=== PATIENT | female | born 1965 | race Caucasian/White ===

== ENCOUNTER → 2017-08-12 | Outpatient (CLI) | payer MEDICAID ==
--- NOTE | 2017-08-16 11:14 | MM ---
Reason for exam: screening (asymptomatic). Last mammogram was performed 2 years and 1 month ago. History: Patient is postmenopausal. Family history of breast cancer in paternal grandmother at age 68. Benign excisional biopsy of the left breast, 1986. Physical Findings: A clinical breast exam by your physician is recommended on an annual basis and results should be correlated with mammographic findings. MG 3D Screening Mammo W/Cad Bilateral CC and MLO view(s) were taken. Prior study comparison: July 03, 2015, bilateral MG 3d screening mammo w/cad. September 22, 2013, mammogram, performed at [facility]. There are scattered fibroglandular densities. There is a new 4mm mass in the right lower inner quadrant at middle depth. Post surgical change on the left breast. ASSESSMENT: Incomplete: need additional imaging evaluation, BI-RAD 0 RECOMMENDATION: Special view mammogram of the right breast. If lesion persists on supplemental views, image directed ultrasound is recommended. [facility] will attempt to contact patient to return for supplemental views and ultrasound if indicated.
== END | disposition home or self-care (01) ==
LOC: RADMAMWWP 07:02
PROVIDERS: ATTEND Obstetrics & Gynecology
DX: Z12.31 Encounter for screening mammogram for malignant neoplasm of breast (principal)
CPT/HCPCS: 77063; 77067

== ENCOUNTER → 2017-08-19 | Outpatient (CLI) | payer MEDICAID ==
--- NOTE | 2017-08-19 14:37 | MM ---
Reason for exam: additional evaluation requested from abnormal screening. Last mammogram was performed less than 1 month ago. History: Patient is postmenopausal. Family history of breast cancer in maternal grandmother at age 90 and breast cancer in paternal grandmother at age 68. Benign excisional biopsy of the left breast, 1986. Took estrogen beginning at age 29. Took progesterone beginning at age 29. Physical Findings: Nurse did not find any significant physical abnormalities on exam. MG 3D Work Up W/Cad RT Spot compression CC, spot compression MLO, and LM view(s) were taken of the right breast. Prior study comparison: August 12, 2017, bilateral MG 3d screening mammo w/cad. July 03, 2015, bilateral MG 3d screening mammo w/cad. Density persists ultrasound recommended. These results were verbally communicated with the patient and result sheet given to the patient on 08/19/17. ASSESSMENT: Incomplete: need additional imaging evaluation, BI-RAD 0 RECOMMENDATION: Ultrasound of the right breast.
--- NOTE | 2017-08-19 14:38 | USB ---
Reason for exam: additional evaluation requested from abnormal screening. History: Patient is postmenopausal. Family history of breast cancer in maternal grandmother at age 90 and breast cancer in paternal grandmother at age 68. Benign excisional biopsy of the left breast, 1986. Took estrogen beginning at age 29. Took progesterone beginning at age 29. US Breast Workup Limited RT Right breast ultrasound demonstrates a 0.4 x 0.5 x 0.2cm mixed lesion at 3 o'clock. These results were verbally communicated with the patient and result sheet given to the patient on 08/19/17. ASSESSMENT: Suspicious, BI-RAD 4 RECOMMENDATION: Ultrasound core biopsy of the right breast. Called Dr. Sage with mammographic findings and has scheduled an appointment for the patient for 09/22/17 at 3:[address] Gillis. Biopsy scheduled for 08/27/17 at 10:00. PRELIMINARY REPORT CALLED AND FAXED TO DR. GILLIS ON 08/19/17.
== END | disposition home or self-care (01) ==
LOC: RADMAMWWP 10:19
PROVIDERS: ATTEND Obstetrics & Gynecology
DX: R92.8 Other abnormal and inconclusive findings on diagnostic imaging of breast (principal)
CPT/HCPCS: 77065; 76642; G0279

== ENCOUNTER → 2017-08-27 | Day surgery (SDC) | payer MEDICAID ==
[2017-08-27 09:20] VITALS: BP 122/80; RESP 18; TEMP 98; BMI 33.9
[2017-08-27 11:27] VITALS: PULSE 80
--- NOTE | 2017-08-27 11:45 | USB ---
EXAMINATION TYPE: US biopsy breast VAD RT, MG diagnostic mammo RT wo CAD DATE OF EXAM: 08/27/2017 CLINICAL HISTORY: R92.8 Abn mammo. TECHNIQUE: Ultrasound guided core biopsy of right 3:00 breast. COMPARISON: NONE FINDINGS: The procedure of ultrasound guided core biopsy was explained to the patient. Benefits, alt ernatives, and risks were discussed. An informed consent was then obtained. The patient was placed in supine positioning for imaging and for the procedure. The overlying skin w as prepped and draped in usual sterile fashion. Lidocaine buffered with bicarbonate was used as anes thetic into the skin and subcutaneous tissue up to area of concern in the right 3:00 breast. Under ultrasound guidance, a 12-gauge vacuum assisted biopsy gun device was used to obtain 3 core sergey ples. Following this, a biopsy clip was left in lesion. The patient tolerated the procedure well without any immediate complication. The patient was kept in the radiology department for short stay after the procedure and then discharged home in stable condi tion. IMPRESSION: Successful, uncomplicated ultrasound guided core biopsy of area of concern in the right 3 :00 breast, full pathology results to follow.
== END ==
LOC: RADUSWWP 08:55
PROVIDERS: ATTEND Surgery
DX: N60.81 Other benign mammary dysplasias of right breast (principal); N60.31 Fibrosclerosis of right breast; N60.41 Mammary duct ectasia of right breast
CPT/HCPCS: 77065; 19083; A4648; J2001; 88305

== ENCOUNTER → 2019-02-24 | Outpatient (CLI) | payer OTHER ==
--- NOTE | 2019-02-24 14:42 | US ---
EXAMINATION TYPE: US carotid duplex BILAT DATE OF EXAM: 02/24/2019 COMPARISON: NONE CLINICAL HISTORY: E78.5 HYPERLIPIDEMIA. Hyperlipidemia EXAM MEASUREMENTS: RIGHT: Peak Systolic Velocity (PSV) cm/sec ----- Right CCA: 90.4 ----- Right ICA: 86.7 ----- Right ECA: 93.0 ICA/CCA ratio: 1.0 RIGHT: End Diastole cm/sec ----- Right CCA: 28.5 ----- Right ICA: 26.0 ----- Right ECA: 17.2 LEFT: Peak Systolic Velocity (PSV) cm/sec ----- Left CCA: 80.3 ----- Left ICA: 74.4 ----- Left ECA: 87.9 ICA/CCA ratio: 0.9 LEFT: End Diastole cm/sec ----- Left CCA: 26.0 ----- Left ICA: 36.5 ----- Left ECA: 22.2 VERTEBRALS (direction of flow): Right Vertebral: Antegrade Left Vertebral: Antegrade Rhythm: Normal Minimal plaque bilateral bifurcations. No evidence of stenosis IMPRESSION: 1. No significant flow-limiting stenosis. Criteria for Assigning % of Stenosis / Diameter reduction (Estimation based on the indirect measurements of the internal carotid artery velocities (ICA PSV). 1. Normal (no stenosis)=ICA PSV < 125 cm/s: ratio < 2.0: ICA EDV<40 cm/s. 2. Less than 50% stenosis=ICA PSV < 125 cm/s: ratio < 2.0: ICA EDV<40 cm/s. 3. 50 to 69% stenosis=ICA PSV of 125 to 230 cm/s: ration 2.0 ? 4.0: ICA EDV 40-100 cm/s. 4. Greater than 70% stenosis to near occlusion= ICA PSV > 230 cm/s: ratio > 4.0: ICA EDV > 100 cm/s. 5. Near occlusion= ICA PSV velocities may be low or undetectable: variable ratio and ICA EDV. 6. Total occlusion=unable to detect flow.
--- NOTE | 2019-02-28 08:11 | MM ---
Reason for exam: screening (asymptomatic). Last mammogram was performed 1 year and 6 months ago. History: Patient is postmenopausal. Family history of breast cancer in maternal grandmother at age 90 and breast cancer in paternal grandmother at age 68. Benign US biopsy breast VAD RT of the right breast, August 27, 2017. Benign excisional biopsy of the left breast, 1986. Took estrogen beginning at age 29. Took progesterone beginning at age 29. Physical Findings: A clinical breast exam by your physician is recommended on an annual basis and results should be correlated with mammographic findings. MG 3D Screening Mammo W/Cad Bilateral CC and MLO view(s) were taken. Prior study comparison: August 27, 2017, right breast MG diagnostic mammo RT wo CAD. August 19, 2017, right breast MG 3d work up w/cad RT. There are scattered fibroglandular densities. Previous mammotome biopsy in the right breast. No significant changes when compared with prior studies. ASSESSMENT: Negative, BI-RAD 1 RECOMMENDATION: Routine screening mammogram of both breasts in 1 year.
--- NOTE | 2019-03-01 15:12 | P.ARTDOP ---
Arterial Doppler LOWER EXTREMITY ARTERIAL DOPPLER: DATE OF SERVICE: 02/24/2019 Reason for study: Intermittent lower extremity edema. Doppler waveforms: Multiphasic bilaterally throughout. Pulse volume recording: []. Pressure gradients: None. Ankle-brachial indices: Greater than 1 bilaterally. Toe pressures: [] on the right, [] on the left Impression: Normal study.
== END | disposition home or self-care (01) ==
LOC: RADMAMWWP 06:57
PROVIDERS: ATTEND Family Medicine
DX: Z12.31 Encounter for screening mammogram for malignant neoplasm of breast (principal); E78.5 Hyperlipidemia, unspecified; M79.605 Pain in left leg; M79.604 Pain in right leg
CPT/HCPCS: 77063; 77067; 93880; 93922

== ENCOUNTER → 2019-08-04 | Outpatient (CLI) | payer OTHER ==
--- NOTE | 2019-08-04 13:47 | XR ---
EXAMINATION TYPE: XR ribs LT DATE OF EXAM: 08/04/2019 COMPARISON: NONE HISTORY: Pain TECHNIQUE: 2 views of the left ribs are submitted FINDINGS: Visualized rib cage is intact. No acute fracture or dislocation. IMPRESSION: No acute displaced rib fracture.
--- NOTE | 2019-08-04 13:48 | XR ---
EXAMINATION TYPE: XR chest 2V DATE OF EXAM: 08/04/2019 COMPARISON: 03/22/2013 TECHNIQUE: PA and lateral views submitted. HISTORY: Pain FINDINGS: The lungs are clear and there is no pneumothorax, pleural effusion, or focal pneumonia. No intersti tial edema. Heart size normal. There is a nodule in the right upper lobe measuring 6 mm. Hypertrophic change of the vertebral column. Surgical clips in the abdomen. IMPRESSION: 1. No acute process. There is a 6 mm right upper lobe nodule. Stable from the prior exam and compatib le with a granuloma.
== END | disposition home or self-care (01) ==
LOC: RADXRMAIN 13:10
PROVIDERS: ATTEND Family Medicine
DX: R91.1 Solitary pulmonary nodule (principal); R07.81 Pleurodynia
CPT/HCPCS: 71046

== ENCOUNTER → 2020-03-01 | Outpatient (CLI) | payer OTHER | END | disposition home or self-care (01) | LOC: LABWHC1 11:56 | PROVIDERS: ATTEND Family Medicine | DX: R05 Cough (principal) | CPT/HCPCS: U0003; C9803 ==

== ENCOUNTER → 2020-11-16 | Outpatient (CLI) | payer OTHER ==
[2020-11-16 17:02] LABS: African American GFR (CKD) 112.3 (60.0-200.0); Albumin 4.8 g/dL (3.80-4.90); Albumin/Globulin Ratio 1.92 (1.60-3.17); Anion Gap 8.5 mmol/L (4.00-12.00); BUN/Creat Ratio 25.71 Ratio (12.00-20.00); C Reactive Protein, High Sens 3.23 mg/L (0.000-3.000); Carbon Dioxide 28.5 mmol/L (21.6-31.8); Chol/HDL Ratio 6.55; Globulin 2.5 g/dL (1.6-3.3); Non-African American GFR(CKD) 96.9 (60.0-200.0); Potassium 4.9 mmol/L (3.5-5.5); Total Bilirubin 0.5 mg/dL (0.3-1.2); Total Protein 7.3 g/dL (6.2-8.2)
[2020-11-16 20:32] LABS: Hemoglobin A1C 9.2 % (4.0-6.0)
== END | disposition home or self-care (01) ==
LOC: LABWHC1 08:59
PROVIDERS: ATTEND Family Medicine
DX: E03.9 Hypothyroidism, unspecified (principal); E78.5 Hyperlipidemia, unspecified; E55.9 Vitamin D deficiency, unspecified; E74.39 Other disorders of intestinal carbohydrate absorption; I10 Essential (primary) hypertension
CPT/HCPCS: 36415; 80053; 80061; 82306; 83036; 83090; 84443; 86141

== ENCOUNTER → 2020-11-23 | Outpatient (CLI) | payer OTHER ==
--- NOTE | 2020-11-23 14:43 | XR ---
EXAMINATION TYPE: XR Hip Bilateral and AP pelvis DATE OF EXAM: 11/23/2020 COMPARISON: NONE HISTORY: Pain TECHNIQUE: 5 views FINDINGS: The pelvic ring is intact. Proximal femurs and hip joints appear normal. There are no patho logic calcifications at the hip joints. There is no sign of hip dysplasia. Sacroiliac joints are inta ct. There are phleboliths in the pelvis. IMPRESSION: No acute abnormality the pelvis and both hips.
== END | disposition home or self-care (01) ==
LOC: RADXRMAIN 12:08
PROVIDERS: ATTEND Family Medicine
DX: M25.552 Pain in left hip (principal); M25.551 Pain in right hip
CPT/HCPCS: 73521

== ENCOUNTER → 2020-12-06 | Outpatient (CLI) | payer OTHER ==
--- NOTE | 2020-12-10 08:58 | MM ---
Reason for exam: screening (asymptomatic). Last mammogram was performed 1 year and 9 months ago. History: Patient is postmenopausal. Family history of breast cancer in maternal grandmother at age 90 and breast cancer in paternal grandmother at age 68. Benign US biopsy breast VAD RT of the right breast, August 27, 2017. Benign excisional biopsy of the left breast, 1986. Took estrogen beginning at age 29. Took progesterone beginning at age 29. Physical Findings: A clinical breast exam by your physician is recommended on an annual basis and results should be correlated with mammographic findings. MG 3D Screening Mammo W/Cad Bilateral CC and MLO view(s) were taken. Prior study comparison: February 24, 2019, bilateral MG 3d screening mammo w/cad. August 27, 2017, right breast MG diagnostic mammo RT wo CAD. There are scattered fibroglandular densities. Right biopsy clip. ASSESSMENT: Benign, BI-RAD 2 RECOMMENDATION: Routine screening mammogram of both breasts in 1 year.
== END | disposition home or self-care (01) ==
LOC: RADMAMWWP 08:24
PROVIDERS: ATTEND Family Medicine
DX: Z12.31 Encounter for screening mammogram for malignant neoplasm of breast (principal); Z78.0 Asymptomatic menopausal state; Z80.3 Family history of malignant neoplasm of breast
CPT/HCPCS: 77063; 77067

== ENCOUNTER 2021-01-02 09:59 | Observation (INO) | payer OTHER ==
[2021-01-02] MEDS ORDERED: ASPIRIN 81 MG PO STA (10:15)
[2021-01-02] MEDS ORDERED: NITROGLYCERIN SL TABS 0.4 MG TAB SUBLINGUAL STA (10:15)
[2021-01-02] MEDS ORDERED: SODIUM CHLORIDE 0.9% 1,000 ML IV STA (10:29)
[2021-01-02 10:34] LABS: Basophils # (A) 0.1 k/uL (0-0.2); Basophils % (A) 1 %; Eosinophils # (A) 0.2 k/uL (0-0.7); Eosinophils % (A) 2 %; HGB 15.1 gm/dL (11.4-16.0); Lymphocytes # (A) 2.3 k/uL (1.0-4.8); Lymphocytes % (A) 28 %; MCH 31.9 pg (25.0-35.0); MCHC 34.3 g/dL (31.0-37.0); Monocytes # (A) 0.5 k/uL (0-1.0); Monocytes % (A) 6 %; Neutrophils # (A) 4.8 k/uL (1.3-7.7); Neutrophils % (A) 60 %; Platelet Count 553 k/uL (150-450); RBC 4.73 m/uL (3.80-5.40); WBC 8.1 k/uL (3.8-10.6)
[2021-01-02 10:43] LABS: ALT 52 U/L (4-34); AST 40 U/L (14-36); African American GFR (CKD) >90 (>60 ml/min/1.73 sqM); Albumin 5.1 g/dL (3.5-5.0); Alkaline Phosphatase 49 U/L (38-126); Anion Gap 13 mmol/L; Blood Urea Nitrogen 18 mg/dL (7-17); Calcium 10.9 mg/dL (8.4-10.2); Carbon Dioxide 25 mmol/L (22-30); Chloride 103 mmol/L (98-107); Glucose 169 mg/dL (74-99); Magnesium 1.8 mg/dL (1.6-2.3); Non-African American GFR(CKD) >90 (>60 ml/min/1.73 sqM); Sodium 141 mmol/L (137-145); Total Bilirubin 0.4 mg/dL (0.2-1.3); Total Protein 7.9 g/dL (6.3-8.2)
--- NOTE | 2021-01-02 10:53 | ED ---
Chest Pain HPI - General Chief Complaint: Chest Pain Stated Complaint: Chest Pain Time Seen by Provider: 01/02/21 10:13 Source: patient Mode of arrival: ambulatory Limitations: no limitations - History of Present Illness Initial Comments: 55-year-old female presents to emergency Department with chief complaint of chest pain. States she was recently diagnosed with type 2 diabetes and started on metformin. States she is also currently taking Crestor for dyslipidemia. Patient reports last week she saw a apn. She reports yesterday developing a pressure in the left side of her neck that was intermittent in nature. States she woke up this morning with dull pain on the left side that intermittently intensifies. States the pain is occasionally better when leaning forward. Does not appear to be exertional. Denies any associated shortness of breath, lightheadedness, dizziness, nausea, vomiting, one-sided weakness or paresthesias, visual changes. Does report extensive family history of early cardiac related events. Not a smoker. Cardiac catheterization in 2008 and was found not to have any occlusions - Related Data Home Medications Medication Instructions Recorded Confirmed Alendronate Sodium/Vitamin D3 1 each PO Q7DAYS 08/20/17 08/27/17 [Fosamax Plus D 70 mg-5,600 Iu] Losartan [Cozaar] 50 mg PO BID 08/20/17 08/27/17 Thyroid,Pork [[place] Thyroid] 120 mg PO DAILY 08/20/17 08/27/17 Allergies Allergy/AdvReac Type Severity Reaction Status Date / Time Iodinated Contrast Media Allergy Anaphylaxis Verified 01/02/21 10:03 Sulfa (Sulfonamide Allergy Rash/Hives Verified 01/02/21 10:03 Antibiotics) Review of Systems ROS Statement: Those systems with pertinent positive or pertinent negative responses have been documented in the HPI. ROS Other: All systems not noted in ROS Statement are negative. EKG Findings - EKG Comments: EKG Findings:: Sinus rhythm without acute ischemic changes. Ventricular rate 9 0, OK 156, QRS 86, QTC 452. Past Medical History Past Medical History: Diabetes Mellitus, Hyperlipidemia, Hypertension, Osteoarthritis (OA), Thyroid Disorder Additional Past Medical History / Comment(s): Ocular hypertension, MTHFR History of Any Multi-Drug Resistant Organisms: None Reported Past Surgical History: Breast Surgery, Cholecystectomy, Hysterectomy Additional Past Surgical History / Comment(s): TMJ surgery, Eye surgery, Benign excisional bx. left breast 1987 Past Anesthesia/Blood Transfusion Reactions: No Reported Reaction Past Psychological History: No Psychological Hx Reported Smoking Status: Never smoker Past Alcohol Use History: None Reported Past Drug Use History: None Reported General Exam Limitations: no limitations General appearance: alert, in no apparent distress, obese Head exam: Present: atraumatic, normocephalic, normal inspection Eye exam: Present: normal appearance, PERRL, EOMI Pupils: Present: normal accommodation ENT exam: Present: normal exam, normal oropharynx, mucous membranes moist Neck exam: Present: normal inspection, full ROM. Absent: tenderness, lymphadenopathy Respiratory exam: Present: normal lung sounds bilaterally. Absent: respiratory distress, wheezes, rales, rhonchi, stridor, chest wall tenderness, accessory muscle use Cardiovascular Exam: Present: regular rate, normal rhythm, normal heart sounds. Absent: systolic murmur Extremities exam: Present: normal inspection, full ROM, normal capillary refill. Absent: tenderness Back exam: Present: normal inspection, full ROM Neurological exam: Present: alert, oriented X3 Psychiatric exam: Present: normal affect, normal mood Skin exam: Present: warm, dry, intact, normal color Course Vital Signs 01/02/21 01/02/21 01/02/21 10:04 10:42 10:52 Temperature 98 F Pulse Rate 81 74 86 Respiratory 18 18 16 Rate Blood Pressure 153/87 127/76 129/73 O2 Sat by Pulse 94 L 95 95 Oximetry 01/02/21 11:21 Temperature Pulse Rate 68 Respiratory 18 Rate Blood Pressure 120/79 O2 Sat by Pulse 97 Oximetry Chest Pain MDM - MDM 55-year-old female presents to emergency Department with chief complaint of chest pain. Physical examination is unremarkable. Laboratory work reveals mild hypercalcemia of 10.9. Mild transaminitis. Initial troponins are negative. His x-rays unremarkable. EKG is nonischemic. I will order a carotid ultrasound due to her complaints of neck pressure and particular in the left side. Patient did have improvement of symptoms after the nitro. There is a higher likelihood for cardiac ischemia. She will be admitted for cardiac observation and serial troponins. Case discussed with who will admit. Case discussed with Dr. Priest Cardiology consult Disposition Clinical Impression: Chest pain Disposition: ADMITTED IP TO THIS HOSP Condition: Stable Instructions (If sedation given, give patient instructions): Chest Pain (ED) Is patient prescribed a controlled substance at d/c from ED?: No Referrals: Lois Olivo DO [Primary Care Provider] - 1-2 days Time of Disposition: 11:54
--- NOTE | 2021-01-02 11:17 | XR ---
EXAMINATION TYPE: XR chest 2V DATE OF EXAM: 01/02/2021 COMPARISON: Chest x-ray August 04, 2019 HISTORY: Chest pain. TECHNIQUE: Frontal and lateral views of the chest are obtained. FINDINGS: There is no suspicious new focal air space opacity, pleural effusion, or pneumothorax seen . The cardiac silhouette size remains within normal limits. The osseous structures are intact. Ove rlying EKG leads. Cholecystectomy clips noted. Stable lateral right upper lobe small calcified nodule or granuloma. IMPRESSION: No acute process. No significant change from prior.
[2021-01-02 11:22] LABS: Partial Thromboplastin Time 23.5 sec (22.0-30.0); Prothrombin Time 10.8 sec (9.0-12.0)
[2021-01-02] MEDS ORDERED: NITROGLYCERIN SL TABS 0.4 MG TAB SUBLINGUAL PRN (11:47)
--- NOTE | 2021-01-02 12:30 | US ---
EXAMINATION TYPE: US carotid duplex BILAT DATE OF EXAM: 01/02/2021 COMPARISON: US 2019 CLINICAL HISTORY: left neck pain, chest pain. EXAM MEASUREMENTS: RIGHT: Peak Systolic Velocity (PSV) cm/sec ----- Right CCA: 75.4 ----- Right ICA: 78.7 ----- Right ECA: 104.3 ICA/CCA ratio: 1.0 RIGHT: End Diastole cm/sec ----- Right CCA: 22.6 ----- Right ICA: 32.5 ----- Right ECA: 16.3 LEFT: Peak Systolic Velocity (PSV) cm/sec ----- Left CCA: 69.2 ----- Left ICA: 68.4 ----- Left ECA: 96.7 ICA/CCA ratio: 1.0 LEFT: End Diastole cm/sec ----- Left CCA: 19.8 ----- Left ICA: 32.0 ----- Left ECA: 11.1 VERTEBRALS (direction of flow): Right Vertebral: Antegrade Left Vertebral: Antegrade Rhythm: Normal No significant stenosis. IMPRESSION: 1. No significant hemodynamic stenosis NASCET criteria was used in interpretation of this exam? Criteria for Assigning % of Stenosis / Diameter reduction (Estimation based on the indirect measurements of the internal carotid artery velocities (ICA PSV). 1. Normal (no stenosis)=ICA PSV < 125 cm/s: ratio < 2.0: ICA EDV<40 cm/s. 2. Less than 50% stenosis=ICA PSV < 125 cm/s: ratio < 2.0: ICA EDV<40 cm/s. 3. 50 to 69% stenosis=ICA PSV of 125 to 230 cm/s: ration 2.0 ? 4.0: ICA EDV 40-100 cm/s. 4. Greater than 70% stenosis to near occlusion= ICA PSV > 230 cm/s: ratio > 4.0: ICA EDV > 100 cm/s. 5. Near occlusion= ICA PSV velocities may be low or undetectable: variable ratio and ICA EDV. 6. Total occlusion=unable to detect flow.
[2021-01-02 13:29] LABS: Glucose,Whole Blood 114 mg/dL (75-99)
--- NOTE | 2021-01-02 14:16 | P.CRDCN ---
History of Present Illness History of present illness: HISTORY OF PRESENTING ILLNESS This is a pleasant 55-year-old female past medical history significant for newly diagnosed dyslipidemia and diabetes mellitus, hypertension and GERD. She follows in the office with Dr. Mccollum at [facility]. We have been asked to see in consultation for chest pain. She states she woke up in the middle of the night with a pain in her left neck. She thought maybe it was reflux so she took at protonix and went back to sleep. She was then woken up a little bit later with ongoing sharp pain in the left neck and now pressure in the chest in the left precordial region. She denies shortness of breath, dizziness or palpitations. She was given nitroglycerin in the ER and it did improve her symptoms of chest discomfort, however she still has ongoing neck discomfort. She recently saw her violin mechanic earlier this week for a routine visit. She states she had a work-up with an echo and stress test in March 2020 that was normal. She also states she had a catheterization in 2008 that revealed small arteries with no blockages. DIAGNOSTICS EKG reveals sinus mechanism with no acute ST or T-wave abnormalities. Chest xray negative for an acute cardiopulmonary process. Laboratory reviewed, WBC 8, hgb 15.1, plt 553, sodium 141, potassium 4.0, creatinine 0.73 and cardiac enzymes negative x2. Current cardiac medications include losartan/hydrochlorothiazide 100/12.5 mg daily and rosuvastatin 10 mg at bedtime. REVIEW OF SYSTEMS At the time of my exam: CONSTITUTIONAL: Denies fever or chills. CARDIOVASCULAR: Denies chest pain, shortness of breath, orthopnea, PND or palpitations. RESPIRATORY: Denies cough. GASTROINTESTINAL: Denies abdominal pain, diarrhea, constipation, nausea or vomiting. MUSCULOSKELETAL: Denies myalgias. NEUROLOGIC: Denies numbness, tingling, headacbe or weakness. ENDOCRINE: Denies fatigue, weight change, polydipsia or polyurina. GENITOURINARY: Denies burning, hematuria or urgency with micturation. HEMATOLOGIC: Denies history of anemia or bleeding. PHYSICAL EXAMINATION Blood pressure 120/79 heart rate 68 afebrile and maintaining oxygen saturation on room air. CONSTITUTIONAL: No apparent distress. HEENT: Head is normocephalic. Pupils are equal, round. Sclerae anicteric. Mucous membranes of the mouth are moist. No JVD. No carotid bruit. CHEST EXAMINATION: Lungs are clear to auscultation. No chest wall tenderness is noted on palpation or with deep breathing. HEART EXAMINATION: Regular rate and rhythm. S1, S2 heard. Systolic ejection murmur at the base, no gallops or rub. ABDOMEN: Soft, nontender. Positive bowel sounds. EXTREMITIES: 2+ peripheral pulses, no lower extremity edema and no calf tende rness. NEUROLOGIC EXAMINATION: Patient is awake, alert and oriented x3. ASSESSMENT Chest pain, atypical Hypertension Dyslipidemia Diabetes mellitus PLAN Continue to obtain serial cardiac enzymes. Request records from her violin mechanic for review. Further recommendations to follow based upon clinical course. Nothing by mouth after midnight tonight. Thank you kindly for this consultation. Nurse Practitioner note has been reviewed, I agree with a documented findings and plan of care. Patient was seen and examined. Past Medical History Past Medical History: Diabetes Mellitus, Hyperlipidemia, Hypertension, Osteoarthritis (OA), Thyroid Disorder Additional Past Medical History / Comment(s): Ocular hypertension, MTHFR History of Any Multi-Drug Resistant Organisms: None Reported Past Surgical History: Breast Surgery, Cholecystectomy, Hysterectomy Additional Past Surgical History / Comment(s): TMJ surgery, Eye surgery, Benign excisional bx. left breast 1987 Past Anesthesia/Blood Transfusion Reactions: No Reported Reaction Past Psychological History: No Psychological Hx Reported Smoking Status: Never smoker Past Alcohol Use History: None Reported Past Drug Use History: None Reported Medications and Allergies Home Medications Medication Instructions Recorded Confirmed Type Thyroid,Pork [[place] Thyroid] 120 mg PO MOTUWETHFR 08/20/17 01/02/21 History Alendronate Sodium [Fosamax] 70 mg PO ESC[place]EDO 01/02/21 01/02/21 History Ascorbic Acid [Vitamin C] 1,000 mg PO DAILY 01/02/21 01/02/21 History Cholecalciferol (Vitamin D3) 125 mcg PO DAILY 01/02/21 01/02/21 History [Vitamin D3 (125 MCG = 5,000 IU)] Losartan/Hydrochlorothiazide 1 tab PO DAILY 01/02/21 01/02/21 History [Losartan-Hctz 100-12.5 mg Tab] [place]-3 Fatty Acids [[place]-3] 1,000 mg PO DAILY 01/02/21 01/02/21 History Rosuvastatin [Crestor] 10 mg PO HS 01/02/21 01/02/21 History Zinc 50 mg PO DAILY 01/02/21 01/02/21 History metFORMIN HCL [Glucophage] 500 mg PO BID 01/02/21 01/02/21 History Allergies Allergy/AdvReac Type Severity Reaction Status Date / Time Iodinated Contrast Media Allergy Anaphylaxis Verified 01/02/21 12:03 Sulfa (Sulfonamide Allergy Rash/Hives Verified 01/02/21 12:03 Antibiotics) Physical Exam Vitals: Vital Signs Temp Pulse Resp BP Pulse Ox 01/02/21 11:21 68 18 120/79 97 01/02/21 10:52 86 16 129/73 95 01/02/21 10:42 74 18 127/76 95 01/02/21 10:04 98 F 81 18 153/87 94 L Intake and Output 01/01/21 01/02/21 01/02/21 22:59 06:59 14:59 Other: Weight 70.307 kg Results 01/02/21 10:26 01/02/21 10:26 Cardiac Enzymes 01/02/21 01/02/21 01/02/21 Range/Units 10:26 10:26 13:05 AST 40 H (14-36) U/L Troponin I <0.012 <0.012 (0.000-0.034) ng/mL Coagulation 01/02/21 Range/Units 10:26 PT 10.8 (9.0-12.0) sec APTT 23.5 (22.0-30.0) sec CBC 01/02/21 Range/Units 10:26 WBC 8.1 (3.8-10.6) k/uL RBC 4.73 (3.80-5.40) m/uL Hgb 15.1 (11.4-16.0) gm/dL Hct 44.0 (34.0-46.0) % Plt Count 553 H (150-450) k/uL Comprehensive Metabolic Panel 01/02/21 Range/Units 10:26 Sodium 141 (137-145) mmol/L Potassium 4.0 (3.5-5.1) mmol/L Chloride 103 (98-107) mmol/L Carbon Dioxide 25 (22-30) mmol/L BUN 18 H (7-17) mg/dL Creatinine 0.71 (0.52-1.04) mg/dL Glucose 169 H (74-99) mg/dL Calcium 10.9 H (8.4-10.2) mg/dL AST 40 H (14-36) U/L ALT 52 H (4-34) U/L Alkaline Phosphatase 49 (38-126) U/L Total Protein 7.9 (6.3-8.2) g/dL Albumin 5.1 H (3.5-5.0) g/dL Current Medications Generic Name Dose Route Start Last Admin Trade Name Freq PRN Reason Stop Dose Admin Aspirin 325 mg 01/03/21 09:00 Aspirin 325 Mg Tab PO DAILY JANES Nitroglycerin 0.4 mg 01/02/21 11:47 Nitroglycerin Sl Tabs 0.4 Mg Tab SUBLINGUAL Q5M PRN Chest Pain Intake and Output 01/01/21 01/02/21 01/02/21 22:59 06:59 14:59 Other: Weight 70.307 kg Patient Weight 01/03/21 06:59 Weight 70.307 kg 01/02/21 10:26 01/02/21 10:26
--- NOTE | 2021-01-02 15:15 | P.HPIM ---
History of Present Illness Patient wasn't a 55-year-old female came in with complaints of chest tightness which started actually is a pain yesterday and she believes she may have acid reflux and took the Protonix. Patient has a this neck pain and chest pressure on and off lasting for a few minutes 5/10 intensity severity. Patient had a stress test last March which was within normal limits patient last cardiac catheterization isn't 2008 which did not show any significant atherosclerotic occlusive disease. Patient denied any shortness of breath or diaphoresis associated with her pain. Patient pain is nonpleuritic not associated with food. Patient presently doesn't have any symptoms did receive nitroglycerin with improvement in chest pain symptoms. EKG did not show any acute ST-T wave changes CT of the chest did not show any significant abnormality. REVIEW OF SYSTEMS: CONSTITUTIONAL: No fever, no malaise, no fatigue. HEENT: No recent visual problems or hearing problems. Denied any sore throat. CARDIOVASCULAR: No orthopnea, PND, no palpitations, no syncope. PULMONARY: No shortness of breath, no cough, no hemoptysis. GASTROINTESTINAL: No diarrhea, no nausea, no vomiting, no abdominal pain. NEUROLOGICAL: No headaches, no weakness, no numbness. HEMATOLOGICAL: Denies any bleeding or petechiae. GENITOURINARY: Denies any burning micturition, frequency, or urgency. MUSCULOSKELETAL/RHEUMATOLOGICAL: Denies any joint pain, swelling, or any muscle pain. ENDOCRINE: Denies any polyuria or polydipsia. The rest of the 14-point review of systems is negative. PHYSICAL EXAMINATION: GENERAL: The patient is alert and oriented x3, not in any acute distress. Well developed, well nourished. HEENT: Pupils are round and equally reacting to light. EOMI. No scleral icterus. No conjunctival pallor. Normocephalic, atraumatic. No pharyngeal erythema. No thyromegaly. CARDIOVASCULAR: S1 and S2 present. No murmurs, rubs, or gallops. PULMONARY: Chest is clear to auscultation, no wheezing or crackles. ABDOMEN: Soft, nontender, nondistended, normoactive bowel sounds. No palpable organomegaly. MUSCULOSKELETAL: No joint swelling or deformity. EXTREMITIES: No cyanosis, clubbing, or pedal edema. NEUROLOGICAL: Gross neurological examination did not reveal any focal deficits. SKIN: No rashes. Assessment and plan -Chest pain we will rule out acute coronary syndromes, patient chest pain is atypical although etiology of her chest pain is not clear at this time. Cardiology will evaluate the patient -Dyslipemia -Type 2 diabetes mellitus: Metformin will be held the patient is an sliding scale insulin -Hypertension: Patient blood pressure is on the low normal side will hold off on hydrochlorothiazide and we'll cut down on losartan. DVT prophylaxis: Past Medical History Past Medical History: Diabetes Mellitus, Hyperlipidemia, Hypertension, Osteoarthritis (OA), Thyroid Disorder Additional Past Medical History / Comment(s): Ocular hypertension, MTHFR History of Any Multi-Drug Resistant Organisms: None Reported Past Surgical History: Breast Surgery, Cholecystectomy, Hysterectomy Additional Past Surgical History / Comment(s): TMJ surgery, Eye surgery, Benign excisional bx. left breast 1987 Past Anesthesia/Blood Transfusion Reactions: No Reported Reaction Past Psychological History: No Psychological Hx Reported Smoking Status: Never smoker Past Alcohol Use History: None Reported Past Drug Use History: None Reported Medications and Allergies Home Medications Medication Instructions Recorded Confirmed Type Thyroid,Pork [[place] Thyroid] 120 mg PO MOTUWETHFR 08/20/17 01/02/21 History Alendronate Sodium [Fosamax] 70 mg PO ESCOBEDO 01/02/21 01/02/21 History Ascorbic Acid [Vitamin C] 1,000 mg PO DAILY 01/02/21 01/02/21 History Cholecalciferol (Vitamin D3) 125 mcg PO DAILY 01/02/21 01/02/21 History [Vitamin D3 (125 MCG = 5,000 IU)] Losartan/Hydrochlorothiazide 1 tab PO DAILY 01/02/21 01/02/21 History [Losartan-Hctz 100-12.5 mg Tab] [place]-3 Fatty Acids [[place]-3] 1,000 mg PO DAILY 01/02/21 01/02/21 History Rosuvastatin [Crestor] 10 mg PO HS 01/02/21 01/02/21 History Zinc 50 mg PO DAILY 01/02/21 01/02/21 History metFORMIN HCL [Glucophage] 500 mg PO BID 01/02/21 01/02/21 History Allergies Allergy/AdvReac Type Severity Reaction Status Date / Time Iodinated Contrast Media Allergy Anaphylaxis Verified 01/02/21 12:03 Sulfa (Sulfonamide Allergy Rash/Hives Verified 01/02/21 12:03 Antibiotics) Physical Exam Vitals: Vital Signs Temp Pulse Resp BP Pulse Ox 01/02/21 14:57 68 18 116/61 97 01/02/21 11:21 68 18 120/79 97 01/02/21 10:52 86 16 129/73 95 01/02/21 10:42 74 18 127/76 95 01/02/21 10:04 98 F 81 18 153/87 94 L Intake and Output 01/02/21 01/02/21 01/02/21 06:59 14:59 22:59 Other: Weight 70.307 kg Results CBC & Chem 7: 01/02/21 10:26 01/02/21 10:26 Labs: Abnormal Lab Results - Last 24 Hours (Table) 01/02/21 01/02/21 01/02/21 Range/Units 10:26 10:26 13:26 Plt Count 553 H (150-450) k/uL BUN 18 H (7-17) mg/dL Glucose 169 H (74-99) mg/dL POC Glucose (mg/dL) 114 H (75-99) mg/dL Calcium 10.9 H (8.4-10.2) mg/dL AST 40 H (14-36) U/L ALT 52 H (4-34) U/L Albumin 5.1 H (3.5-5.0) g/dL
[2021-01-02 18:13] LABS: Glucose,Whole Blood 143 mg/dL (75-99)
[2021-01-02] MEDS: INSULIN ASPART (NovoLOG) 100 UNIT/ML VIAL SQ SCH ×2 (18:19→22:41)
[2021-01-02 20:45] LABS: Glucose,Whole Blood 113 mg/dL (75-99)
[2021-01-02] MEDS ORDERED: ATORVASTATIN 20 MG TAB PO SCH (21:00)
[2021-01-03] MEDS ORDERED: THYROID, PORK 30 MG TAB PO SCH (06:30)
[2021-01-03 07:34] LABS: Glucose,Whole Blood 130 mg/dL (75-99)
[2021-01-03] MEDS: INSULIN ASPART (NovoLOG) 100 UNIT/ML VIAL SQ SCH ×2 (07:40→12:25)
[2021-01-03] MEDS ORDERED: ASPIRIN 81 MG PO SCH (09:00)
[2021-01-03] MEDS ORDERED: LOSARTAN 50 MG TAB PO SCH ×2 (09:00)
[2021-01-03] MEDS ORDERED: ASPIRIN 325 MG TAB PO SCH (09:00)
[2021-01-03] MEDS ORDERED: hydroCHLOROthiazide 12.5 MG CAP PO SCH (09:00)
[2021-01-03] MEDS ORDERED: NON FORMULARY DRUG (Losartan/Hydrochlorothiazide [Losartan-Hctz 100-12.5 Mg Tab] 1 EACH Ta PO SCH (09:00)
[2021-01-03] MEDS ORDERED: ZINC SULFATE 220 MG CAP PO SCH (09:00)
[2021-01-03] MEDS ORDERED: CHOLECALCIFEROL 25 MCG (1000 IU) TABLET PO SCH (09:00)
--- NOTE | 2021-01-03 11:00 | ECHOF ---
Referral Reason:cp MEASUREMENTS -------- HEIGHT: 149.9 cm WEIGHT: 70.3 kg BP: 114/74 RVIDd: 3.2 cm (< 3.3) IVSd: 1.0 cm (0.6 - 1.1) LVIDd: 3.9 cm (3.9 - 5.3) LVPWd: 1.1 cm (0.6 - 1.1) IVSs: 1.4 cm LVIDs: 2.1 cm LVPWs: 1.4 cm LAESV Index (A-L): 26.26 ml/m Ao Diam: 2.6 cm (2.0 - 3.7) AV Cusp: 1.5 cm (1.5 - 2.6) LA Diam: 3.3 cm (2.7 - 3.8) MV EXCURSION: 19.676 mm (> 18.000) MV EF SLOPE: 86 mm/s (70 - 150) EPSS: 0.5 cm MV E Ambrosio: 0.72 m/s MV DecT: 145 ms MV A Ambrosio: 0.99 m/s MV E/A Ratio: 0.73 RAP: 5.00 mmHg RVSP: 17.38 mmHg FINDINGS -------- Sinus rhythm. This was a technically adequate study. The left ventricular size is normal. Left ventricular wall thickness is normal. Overall left vent ricular systolic function is normal with, an EF between 55 - 60 %. The diastolic filling pattern is normal for the age of the patient 11.00. The right ventricle is normal in size. Normal LA size by volume 22+/-6 ml/m2. The right atrial size is normal. Interatrial and interventricular septum intact. The aortic valve is trileaflet and appears structurally normal. Trace to mild aortic regurgitation. The mitral valve is normal. There is trace mitral regurgitation. The tricuspid valve appears structurally normal. Trace tricuspid regurgitation present. Right jovita tricular systolic pressure is normal at < 35 mmHg. The right ventricular systolic pressure, as jose luis ured by Doppler, is 17.38mmHg. There is no pulmonic regurgitation present. The aortic root size is normal. Normal inferior vena cava with normal inspiratory collapse consistent with estimated right atrial pre ssure of 5 mmHg. There is no pericardial effusion. CONCLUSIONS -------- 1. Left ventricular wall thickness is normal. 2. Overall left ventricular systolic function is normal with, an EF between 55 - 60 %. 3. Normal LA size by volume 22+/-6 ml/m2. 4. Trace to mild aortic regurgitation. 5. Trace tricuspid regurgitation present. 6. There is no pericardial effusion. DESIGN ANALYST: Corrie Gillespie RDCS
--- NOTE | 2021-01-03 11:04 | PN ---
PROGRESS NOTE Ms. Schumacher is a 55-year-old female who presented yesterday with chest and neck discomfort. She has history of diabetes, hyperlipidemia and hypertension. She has no prior documented history of coronary artery disease. She is feeling well this morning. She denies any chest pain. She denies any dizziness or palpitation. She has been ambulating in the room without any difficulty. She continues to be in sinus mechanism. She continues to be at this time on aspirin once a day, Lipitor 20 mg daily, losartan 50 mg daily and [place] Thyroid and insulin. PHYSICAL EXAMINATION: Blood pressure 114/70 with a heart rate in the 60s. LUNGS: Clear. HEART: Regular rate and rhythm S1, S2. No S3. No rub. ABDOMEN: Soft, nontender. EXTREMITIES: No edema. IMPRESSION: 1. Neck and chest discomfort with no evidence for acute coronary syndrome. Her cardiac enzymes are unremarkable. 2. History of hypertension. 3. Hyperlipidemia. 4. Diabetes mellitus. RECOMMENDATIONS: We will proceed with a stress echocardiogram and a transthoracic echocardiogram today. We will await the records from her protection consultant for further evaluation. If there is no evidence of stress-induced ischemia, then we expect she should be able to be discharged home today. MMODL / IJN: [id number] /
[2021-01-03 11:59] LABS: Glucose,Whole Blood 112 mg/dL (75-99)
[2021-01-03 12:10] LABS: Chol/HDL Ratio 3.89; LDL Cholesterol,Calculated 71.4 mg/dL (0.0-131.0); VLDL Calculation 32.6 mg/dL (5.00-40.00)
[2021-01-03 14:48] VITALS: BP 119/72; PULSE 83; RESP 17; TEMP 98
--- NOTE | 2021-01-03 15:12 | P.DS ---
Providers Date of admission: 01/02/21 11:43 Attending physician: Pastora Nevarez Consults: 01/02/21 11:50 Consult Physician Urgent Consulting Provider: Sravan Mcgvoern Reason/Comments: Chest pain Do you want consulting provider notified?: Yes Primary care physician: Lois Canalesyre [facility] Course: Final Diagnosis -Chest pain, clear stress test, cleared by cardiology services for discharge. -Dyslipidemia, patient will continue on Lipitor -Type 2 diabetes mellitus: Metformin will be resumed on discharge -Hypertension: Within normal limits, hold hydralazine, continue on a half dose of losartan. DVT prophylaxis: Early ambulation Discharge disposition Patient is being discharged home with self care. She has been cleared by cardiology services after having a clear stress test today. Vital signs are stable, patient denies any chest pain at this time. Patient will follow-up with cardiology services. Hospital course Patient wasn't a 55-year-old female came in with complaints of chest tightness which started actually is a pain yesterday and she believes she may have acid reflux and took the Protonix. Patient has a this neck pain and chest pressure on and off lasting for a few minutes 5/10 intensity severity. Patient had a stress test last March which was within normal limits patient last cardiac catheterization isn't 2008 which did not show any significant atherosclerotic occlusive disease. Patient denied any shortness of breath or diaphoresis associated with her pain. Patient pain is nonpleuritic not associated with food. Patient presently doesn't have any symptoms did receive nitroglycerin with improvement in chest pain symptoms. EKG did not show any acute ST-T wave changes CT of the chest did not show any significant abnormality. Patient was evaluated by cardiology services who ordered an echocardiogram, as well as a stress test. 01/03/2021 Patient is evaluated today at the bedside, patient denies any chest pain, cough, short of breath. Patient had an echocardiogram completed today that revealed an ejection fraction of 55-60%, trace to mild aortic regurgitation, trace tricuspid regurgitation. Patient proceeded with a stress test today, but was clear. Patient has been discharged from cardiology services. In addition patient has a carotid Doppler performed this admission that was negative for any stenosis bilaterally. Cardiac markers were negative times 3. Vital signs have remained stable at 119/72, heart rate 83, afebrile. Patient will continue on all current medications, no further medication changes via cardiology services. Patient is being discharged with supplemental nitroglycerin as needed. See medication reconciliation for list of current medications on discharge. Patient Condition at Discharge: Stable Plan - Discharge Summary Discharge Rx Participant: No New Discharge Prescriptions: New Nitroglycerin Sl Tabs [Nitrostat] 0.4 mg SUBLINGUAL Q5M PRN #20 tab PRN Reason: Chest Pain Continue Thyroid,Pork [[place] Thyroid] 120 mg PO MOTUWETHFR Una-3 Fatty Acids [Una-3] 1,000 mg PO DAILY Rosuvastatin [Crestor] 10 mg PO HS Losartan/Hydrochlorothiazide [Losartan-Hctz 100-12.5 mg Tab] 1 tab PO DAILY Alendronate Sodium [Fosamax] 70 mg PO ESCOBEDO Zinc 50 mg PO DAILY Cholecalciferol (Vitamin D3) [Vitamin D3 (125 MCG = 5,000 IU)] 125 mcg PO DAILY metFORMIN HCL [Glucophage] 500 mg PO BID Ascorbic Acid [Vitamin C] 1,000 mg PO DAILY Discharge Medication List Thyroid,Pork [[place] Thyroid] 120 mg PO MOTUWETHFR 08/20/17 [History] Alendronate Sodium [Fosamax] 70 mg PO ESCOBEDO 01/02/21 [History] Ascorbic Acid [Vitamin C] 1,000 mg PO DAILY 01/02/21 [History] Cholecalciferol (Vitamin D3) [Vitamin D3 (125 MCG = 5,000 IU)] 125 mcg PO DAILY 01/02/21 [History] Losartan/Hydrochlorothiazide [Losartan-Hctz 100-12.5 mg Tab] 1 tab PO DAILY 01/02/21 [History] Una-3 Fatty Acids [Una-3] 1,000 mg PO DAILY 01/02/21 [History] Rosuvastatin [Crestor] 10 mg PO HS 01/02/21 [History] Zinc 50 mg PO DAILY 01/02/21 [History] metFORMIN HCL [Glucophage] 500 mg PO BID 01/02/21 [History] Nitroglycerin Sl Tabs [Nitrostat] 0.4 mg SUBLINGUAL Q5M PRN #20 tab 01/03/21 [Rx] Follow up Appointment(s)/Referral(s): Lois Olivo DO [Primary Care Provider] - 1-2 days Brooke Milligan MD [STAFF PHYSICIAN] - 1 Week Patient Instructions/Handouts: Chest Pain (ED) Activity/Diet/Wound Care/Special Instructions: Activity Limited to follow, continue cardiac diet. Patient needs a follow-up with her PCP as well as her inspector tester sorter Discharge Disposition: HOME SELF-CARE
--- NOTE | 2021-01-03 21:02 | ECHOS ---
STRESS ECHOCARDIOGRAM INDICATIONS: Chest pain BASELINE HEART RATE: 73 BASELINE BLOOD PRESSURE: 138/88 MAXIMUM HEART RATE: 151 MAXIMUM BLOOD PRESSURE: 231/100 85% MPHR: 139 100% MPHR: 164 METS: 9.1 MAXIMUM STAGE REACHED: 3 TOTAL EXERCISE TIME: 7:32 CLINICAL INFORMATION: Baseline rhythm is sinus mechanism, rate of 56, right axis deviation, poor R progression. Baseline blood pressure 138/88 mmHg. Patient exercised on Franki protocol for 7 minute 32 seconds reaching peak rate of 151 beats per minute which is equal to 92% of maximum predicted heart rate. Peak blood pressure 231/100 mmHg. Test was due to significant fatigue. There was no chest pain. Electrocardiograph monitoring revealed no evidence of diagnostic ischemic ST deviation. FINDINGS: Baseline echocardiogram revealed normal wall thickness and wall motion. At peak exercise there was normal wall motion augmentation without any hypokinesis or dyskinesis. CONCLUSION: 1. Average exercise tolerance was normal echocardiograph response to exercise and rare PVCs. 2. Normal stress echocardiogram with no evidence of stress-induced ischemia. MMODL / IJN: [id number] /
== END 2021-01-03 16:15 | disposition home or self-care (01) ==
LOC: EC 09:59 → 6NMEDSUR 11:43
PROVIDERS: ADMIT Internal Medicine; ATTEND Internal Medicine
DX: R07.89 Other chest pain (principal); M54.2 Cervicalgia; E11.9 Type 2 diabetes mellitus without complications; E78.5 Hyperlipidemia, unspecified; E72.12 Methylenetetrahydrofolate reductase deficiency; E83.52 Hypercalcemia; R74.01 Elevation of levels of liver transaminase levels; K21.9 Gastro-esophageal reflux disease without esophagitis; I10 Essential (primary) hypertension; E07.9 Disorder of thyroid, unspecified; M19.90 Unspecified osteoarthritis, unspecified site; H40.059 Ocular hypertension, unspecified eye; Z79.83 Long term (current) use of bisphosphonates; Z79.84 Long term (current) use of oral hypoglycemic drugs; Z79.890 Hormone replacement therapy; Z79.899 Other long term (current) drug therapy; Z88.2 Allergy status to sulfonamides; Z91.041 Radiographic dye allergy status; Z90.710 Acquired absence of both cervix and uterus; Z90.49 Acquired absence of other specified parts of digestive tract; Z98.890 Other specified postprocedural states; Z82.49 Family history of ischemic heart disease and other diseases of the circulatory system
CPT/HCPCS: 99285; 36415; 93005; 93306; 93351; 80061; 80053; 83735; 84484; 85025; 85610; 85730; 71046; 93880; G0378 ×2

== ENCOUNTER → 2021-01-15 | Outpatient (CLI) | payer OTHER ==
--- NOTE | 2021-01-15 21:28 | CT ---
EXAMINATION TYPE: CT abdomen pelvis wo con DATE OF EXAM: 01/15/2021 COMPARISON: CT abdomen pelvis 04/08/2016 HISTORY: left lower abd pain CT DLP: 984 mGycm Automated exposure control for dose reduction was used. TECHNIQUE: Helical acquisition of images was performed from the lung bases through the pelvis. FINDINGS: LUNG BASES: No significant abnormality is appreciated. LIVER/GB: Hepatic steatosis. Cholecystectomy.. PANCREAS: No significant abnormality is seen. SPLEEN: Splenic granuloma. Nonenlarged. ADRENALS: No significant abnormality is seen. KIDNEYS: No hydronephrosis. Punctate hyperdensity in the right kidney could represent a tiny nonobstr ucting stone or calcification. Bladder is unremarkable FREE AIR: No free air is visualized RETROPERITONEAL ADENOPATHY: None visualized REPRODUCTIVE ORGANS: No significant abnormality is seen URINARY BLADDER: No significant abnormality is seen. PELVIC ADENOPATHY: None visualized. OSSEOUS STRUCTURES: No significant abnormality is seen. BOWEL: Nondilated bowel. Appendix is normal. Fecal ball in the rectum. OTHER: Lung bases are clear. IMPRESSION: No acute process in the abdomen or pelvis.
== END | disposition home or self-care (01) ==
LOC: RADCTMAIN 17:22
PROVIDERS: ATTEND Family Medicine
DX: R10.32 Left lower quadrant pain (principal)
CPT/HCPCS: 74176

== ENCOUNTER → 2021-01-15 | Outpatient (CLI) | payer SELFPAY ==
--- NOTE | 2021-01-15 09:21 | CT ---
EXAMINATION TYPE: CT heart w calcium score DATE OF EXAM: 01/15/2021 COMPARISON: HISTORY: Screening for cardiovascular disorder. 213.9 CT DLP: 57.30 mGycm Automated exposure control for dose reduction was used. CT CALCIUM SCORING Coronary calcium is a marker for plaque (fatty deposits) in a blood vessel or atherosclerosis (harden ing of the arteries). The presence and amount of calcium detected in a coronary artery by the CT sca n, indicates the presence and amount of atherosclerotic plaque. These calcium deposits appear years before the development of heart disease symptoms such as chest pain and shortness of breath. A calcium score is computed for each of the coronary arteries based upon the volume and density of th e calcium deposits. This can be referred to as your calcified plaque burden. It does not correspond directly to the percentage of narrowing in the artery but does correlate with the severity of the un derlying coronary atherosclerosis. PROCEDURE TECHNIQUE - Prospective Gating was used. Slice thickness: 3mm. Density threshold (HU): 130, Pixel threshold: 3, Algorithm: discrete. RESULTS Region: LM Calcium Score (Agatston): 0 Volume (mm3): 0 Mass (g): 0 Region: RCA Calcium Score (Agat[place]): 0 Volume (mm3): 0 Mass (g): 0 Region: LAD Calcium Score (Agatston): 0 Volume (mm3): 0 Mass (g): 0 Region: CX Calcium Score (Agatston): 0 Volume (mm3): 0 Mass (g): 0 Region: PDA Calcium Score (Agatston): 0 Volume (mm3): 0 Mass (g): 0 Total: Calcium Score (Agatston): 0 Volume (mm3): 0 Mass (g): 0 TOTAL CALCIUM SCORE: 0 Hypertrophic change of the spine. Atherosclerotic change of the aorta. IMPRESSION: Calcium Score: 0 Implication: No identifiable plaque. Risk of Coronary Artery Disease: Very low, generally less than 5%. CALCIUM SCORE IMPLICATION RISK OF C ORONARY ARTERY DISEASE 0 No identifiable plaque Very low, generally less than 5% 1-10 Minimal identifiable plaque Very unlikely, less than 10% 11-100 Definite, at least mild atherosclerotic plaque Mild or m inimal coronary narrowings likely 101-400 Definite, at least moderate atherosclerotic plaque Mild coronary ar omid disease highly likely, significant narrowing possible 401 or Higher Extensive atherosclerotic plaque High lik elihood of at least one significant coronary narrowing
== END | disposition home or self-care (01) ==
LOC: RADCTMAIN 08:24
PROVIDERS: ATTEND Internal Medicine Cardiovascular Disease
DX: Z13.6 Encounter for screening for cardiovascular disorders (principal); I25.10 Atherosclerotic heart disease of native coronary artery without angina pectoris
CPT/HCPCS: 75571

== ENCOUNTER → 2021-02-28 | Outpatient (CLI) | payer OTHER ==
[2021-02-28 15:28] LABS: Basophils # (A) 0.09 X 10*3/uL (0.00-0.10); Basophils % (A) 1.1 %; Eosinophils # (A) 0.19 X 10*3/uL (0.04-0.35); Eosinophils % (A) 2.4 %; HCT 43.8 % (37.2-46.3); HGB 14.5 g/dL (12.0-15.0); Lymphocytes # (A) 1.95 X 10*3/uL (0.90-5.00); Lymphocytes % (A) 24.7 %; MCH 30.3 pg (27.0-32.0); MCHC 33.1 g/dL (32.0-37.0); MCV 91.6 fL (80.0-97.0); Mean Platelet Volume 10.7 fL (9.5-12.2); Monocytes # (A) 0.69 X 10*3/uL (0.20-1.00); Monocytes % (A) 8.8 %; Neutrophils # (A) 4.94 X 10*3/uL (1.80-7.70); Neutrophils % (A) 62.7 %; Platelet Count 384 X 10*3/uL (140-440); RBC 4.78 X 10*6/uL (4.10-5.20); RDW 13.1 % (11.5-14.5); WBC 7.88 X 10*3/uL (4.50-10.00)
[2021-03-01 20:19] LABS: African American GFR (CKD) 147.1 (60.0-200.0); Albumin 4.8 g/dL (3.8-4.9); Albumin/Globulin Ratio 2.04 (1.60-3.17); Anion Gap 16.7 mmol/L (4.00-12.00); BUN/Creat Ratio 63.31 Ratio (12.00-20.00); Blood Urea Nitrogen 19.5 mg/dL (9.0-27.0); Calcium 10.3 mg/dL (8.7-10.3); Carbon Dioxide 22.9 mmol/L (21.6-31.8); Chol/HDL Ratio 3.34 Ratio; Globulin 2.4 g/dL (1.6-3.3); HDL Cholesterol 35.3 mg/dL (40.00-60.00); LDL Cholesterol,Calculated 58.9 mg/dL (0.0-131.0); Non-African American GFR(CKD) 126.9 (60.0-200.0); Potassium 4.5 mmol/L (3.5-5.5); Total Bilirubin 0.2 mg/dL (0.30-1.20); Total Protein 7.2 g/dL (6.2-8.2); VLDL Calculation 23.8 mg/dL (5.00-40.00)
== END | disposition home or self-care (01) ==
LOC: LABWHC1 08:58
PROVIDERS: ATTEND Family Medicine
DX: Z01.84 Encounter for antibody response examination (principal); Z15.89 Genetic susceptibility to other disease; E11.9 Type 2 diabetes mellitus without complications; E03.9 Hypothyroidism, unspecified; E55.9 Vitamin D deficiency, unspecified
CPT/HCPCS: 36415; 80053; 80061; 82306; 83036; 84439; 84443; 85025; 86769

== ENCOUNTER → 2021-08-01 | Outpatient (CLI) | payer OTHER ==
[2021-08-01 15:47] LABS: ALT 30 U/L (8-44); AST 16 U/L (13-35); African American GFR (CKD) 113.6 (60.0-200.0); Albumin 4.9 g/dL (3.8-4.9); Albumin/Globulin Ratio 1.83 (1.60-3.17); Alkaline Phosphatase 37 U/L (41-126); Blood Urea Nitrogen 19.1 mg/dL (9.0-27.0); C Reactive Protein <0.30 mg/dL (0.00-0.80); Calcium 10.4 mg/dL (8.7-10.3); Carbon Dioxide 23.4 mmol/L (20.0-27.5); Chloride 98 mmol/L (96-109); Chol/HDL Ratio 5.84 Ratio; Globulin 2.7 g/dL (1.6-3.3); Glucose 114 mg/dL (70-110); LDL Cholesterol,Calculated 150.7 mg/dL (0.0-131.0); Potassium 4.6 mmol/L (3.5-5.5); Sodium 139 mmol/L (135-145); Total Protein 7.6 g/dL (6.2-8.2)
== END | disposition home or self-care (01) ==
LOC: LABWHC1 08:32
PROVIDERS: ATTEND Internal Medicine Endocrinology, Diabetes & Metabolism
DX: Z00.00 Encounter for general adult medical examination without abnormal findings (principal)
CPT/HCPCS: 36415; 80053; 80061; 82043; 82172; 82306; 82570; 84439; 84443; 86140

== ENCOUNTER → 2021-08-08 | Outpatient (CLI) | payer OTHER ==
[2021-08-08 15:02] LABS: African American GFR (CKD) 118.1 (60.0-200.0); Albumin 4.9 g/dL (3.8-4.9); Anion Gap 14.3 mmol/L (10.00-18.00); BUN/Creat Ratio 19.67 Ratio (12.00-20.00); Blood Urea Nitrogen 11.8 mg/dL (9.0-27.0); Calcium 9.9 mg/dL (8.7-10.3); Carbon Dioxide 23.7 mmol/L (20.0-27.5); Globulin 2.5 g/dL (1.6-3.3); Magnesium 1.9 mg/dL (1.5-2.4); Non-African American GFR(CKD) 101.9 (60.0-200.0); Potassium 4.4 mmol/L (3.5-5.5); Total Protein 7.4 g/dL (6.2-8.2)
[2021-08-08 15:03] LABS: Albumin/Globulin Ratio 1.96 (1.60-3.17); Total Bilirubin 0.4 mg/dL (0.30-1.20)
== END | disposition home or self-care (01) ==
LOC: LABWHC1 09:03
PROVIDERS: ATTEND Family Medicine
DX: U07.1 COVID-19 (principal); E11.65 Type 2 diabetes mellitus with hyperglycemia; E03.9 Hypothyroidism, unspecified; N28.9 Disorder of kidney and ureter, unspecified
CPT/HCPCS: 36415; 80053; 83036; 83735; 83970; 84439; 84443; 86769

== ENCOUNTER → 2021-11-06 | Outpatient (CLI) | payer OTHER ==
[2021-11-06 10:43] LABS: Platelet Count 454 X 10*3/uL (140-440)
[2021-11-06 10:54] LABS: Creatine Kinase 25 U/L (26-186)
[2021-11-06 10:55] LABS: Chol/HDL Ratio 4.55 Ratio; LDL Cholesterol,Calculated 98.7 mg/dL (0.0-131.0)
[2021-11-06 23:15] LABS: Microalbumin Creatinine Ratio <30 mg/g Creat (0-30); Urine Creatinine 86.7 mg/dL (28.0-217.0)
== END | disposition home or self-care (01) ==
LOC: LABWHC1 07:13
PROVIDERS: ATTEND Internal Medicine Endocrinology, Diabetes & Metabolism
DX: E11.65 Type 2 diabetes mellitus with hyperglycemia (principal)
CPT/HCPCS: 36415; 80061; 82043; 82550; 82570; 83090; 85049

== ENCOUNTER → 2022-01-30 | Outpatient (CLI) | payer OTHER ==
--- NOTE | 2022-01-30 15:40 | BD ---
EXAMINATION TYPE: Axial Bone Density DATE OF EXAM: 01/30/2022 COMPARISON: NONE CLINICAL HISTORY: 56 years year old Female. ICD-10 CODE: M85.9 BONE DISORDER Height: 4 FT 10 1/ 2IN Weight: 138 FRAX RISK QUESTIONS: Alcohol (3 or more units per day): NO Family History (Parent hip fracture): NO Glucocorticoids (More than 3mos): NO (Ex: prednisone, prednisolone, methylprednisolone, dexamethasone, and hydrocortisone). History of Fracture in Adulthood: NO Secondary Osteoporosis: 1. Type 1 Diabetes: TYPE 2 2. Hyperthyroidism: NO 3. Menopause before 45: YES 4. Malnutrition: NO 5. Chronic liver disease: NO Rheumatoid Arthritis: NO Current Tobacco Use: NO RISK FACTORS HISTORY OF: Surgery to Spine/Hip(right/left)/Wrist (right/left): NO Family History of Osteoporosis: YES Active: YES Diet low in dairy products/other sources of calcium: NO Postmenopausal woman: YES Take estrogen and/or progesterone medications: NONE NOW Lost more than 2 inches in height since high school: NO Frequent falls: NO Poor Health: GOOD Hyperparathyroidism: NO Adrenal Insufficiency: NO MEDICATIONS: Thyroid Medications: YES Which medication: ARMOUR THYROID How Long: APPROX 20 YEARS Osteoporosis Medications: YES Which medication: FOSAMAX How Lon YEARS Additional Medications: ARMOUR THYROID, FOSAMAX,METFORMIN, TRADJENTA, LOSARTAN HCTZ, CRESTOR, LANTAPR OST Additional History: EXAM MEASUREMENTS: Bone mineral densitometry was performed using the neoSaej System. Bone mineral density as measured about the Lumbar spine is: ----- L1-L4(G/cm2): 1.181 T Score Values are as follows: ----- L1: -1.0 ----- L2: -0.1 ----- L3: 0.0 ----- L4: 0.7 ----- L1-L4: 0.0 Bone mineral density has: INCREASED 9.2 % since study of: 2016 Bone mineral density about the R hip (g/cm2): 0.881 Bone mineral density about the L hip (g/cm2): 0.941 T Score values are as follows: -----R Neck: -1.1 -----L Neck: -0.7 -----R Total: -0.2 -----L Total: 0.1 Bone mineral density has: INCREASED 1.2 % since study of: 2016 FRAX%s: The graph provided illustrates a 13.0 % chance for a major osteoporotic fx and a 0.4 % chanc e for the hips probability for fx in 10 years time. IMPRESSION: Normal (Values between +1 and -1 indicate normal bone mass). Consider repeating this study in 5 year s or sooner if there is some new clinical indication. NOTE: T-SCORE=SD OF THE YOUNG ADULT MEAN.
--- NOTE | 2022-02-03 06:28 | MM ---
Reason for Exam: Screening (asymptomatic). Last mammogram was performed 1 year(s) and 2 month(s) ago. Patient History: Menarche at age 10. First Full-Term at age 19. Left ovary removed at age 20. Right ovary removed at age 20. Hysterectomy at age 20. Postmenopausal. Patient has history of breast feeding. Estrogen, from age 29 until age 44. Progesterone, from age 29 until age 44. 1986, Benign Excisional Biopsy on the left side. 08/27/2017, Benign Core Biopsy on the right side. Paternal grandmother had breast cancer, age 68. Maternal grandmother had breast cancer, age 90. Risk Values: Lois 5 year model risk: 1.9%. NCI Lifetime model risk: 11.4%. Prior Study Comparison: 07/03/2015 Bilateral Screening Mammogram, [facility]. 08/12/2017 Bilateral Screening Mammogram, [facility]. 08/19/2017 Right Diagnostic Mammogram, [facility]. 08/27/2017 Right Diagnostic Mammogram, [facility]. 02/24/2019 Bilateral Screening Mammogram, [facility]. 12/06/2020 Bilateral Screening Mammogram, [facility]. Tissue Density: There are scattered fibroglandular densities. Findings: Analyzed By CAD. Stable few grouped tiny round calcifications left breast. Mammotome biopsy clip right breast redemonstrated. Stable asymmetric prominent tissue right breast anteriorly upper aspect. There is no suspicious group of microcalcifications or new distortion in either breast. Overall Assessment: Benign, BI-RAD 2 Management: Screening Mammogram of both breasts in 1 year. A clinical breast exam by your physician is recommended on an annual basis and results should be correlated with mammographic findings. Electronically signed and approved by: Gio Mathews M.D.
== END | disposition home or self-care (01) ==
LOC: RADMAMWWP 06:59
PROVIDERS: ATTEND Obstetrics & Gynecology
DX: Z12.31 Encounter for screening mammogram for malignant neoplasm of breast (principal); M85.89 Other specified disorders of bone density and structure, multiple sites; Z80.3 Family history of malignant neoplasm of breast; Z78.0 Asymptomatic menopausal state; Z98.890 Other specified postprocedural states
CPT/HCPCS: 77063; 77067; 77080

== ENCOUNTER → 2022-02-06 | Outpatient (CLI) | payer OTHER ==
[2022-02-06 15:19] LABS: T4, Free (Free Thyroxine) 0.74 ng/dL (0.800-1.800)
== END | disposition home or self-care (01) ==
LOC: LABWHC1 08:32
PROVIDERS: ATTEND Internal Medicine Endocrinology, Diabetes & Metabolism
DX: E03.9 Hypothyroidism, unspecified (principal)
CPT/HCPCS: 36415; 84439; 84443

== ENCOUNTER → 2022-07-01 | Outpatient (CLI) | payer OTHER ==
[2022-07-01 10:54] LABS: ALT 20 U/L (8-44); AST 13 U/L (13-35); African American GFR (CKD) 111.5 (60.0-200.0); Albumin 4.8 g/dL (3.8-4.9); Albumin/Globulin Ratio 1.85 (1.60-3.17); Alkaline Phosphatase 41 U/L (41-126); BUN/Creat Ratio 21.86 Ratio (12.00-20.00); Blood Urea Nitrogen 15.3 mg/dL (9.0-27.0); Calcium 9.9 mg/dL (8.7-10.3); Carbon Dioxide 26.4 mmol/L (20.0-27.5); Chloride 99 mmol/L (96-109); Chol/HDL Ratio 3.94 Ratio; Globulin 2.6 g/dL (1.6-3.3); Glucose 114 mg/dL (70-110); LDL Cholesterol,Calculated 84.4 mg/dL (0.0-131.0); Non-African American GFR(CKD) 96.2 (60.0-200.0); Potassium 4.4 mmol/L (3.5-5.5); Sodium 138 mmol/L (135-145); Total Protein 7.4 g/dL (6.2-8.2)
== END | disposition home or self-care (01) ==
LOC: LABWHC1 06:56
PROVIDERS: ATTEND Internal Medicine Endocrinology, Diabetes & Metabolism
DX: E11.65 Type 2 diabetes mellitus with hyperglycemia (principal); E03.9 Hypothyroidism, unspecified
CPT/HCPCS: 36415; 80053; 80061; 82043; 82306; 82570; 84439; 84443; 86376

== ENCOUNTER → 2022-08-21 | Outpatient (CLI) | payer OTHER ==
--- NOTE | 2022-08-21 08:54 | MR ---
EXAMINATION TYPE: MR hip LT wo con DATE OF EXAM: 08/21/2022 COMPARISON: CT abdomen and pelvis January 15, 2021 HISTORY: Left hip pain, injury in Standard multiplanar, multisequence MRI departmental protocol Multiplanar, multisequence images of the pelvis focusing on left hip were acquired without contrast. FINDINGS: Hip joint spaces are symmetric with mild axial joint space loss bilaterally and minimal van tabular spurring bilaterally. Femoral head shapes are maintained bilaterally. No significant effusion is seen bilaterally. No serpiginous diminished T1 signal to suggest avascular necrosis. No increased T2 signal to suggest osseous edema. Muscle bulk is symmetric and maintained bilaterally. There is no groin hernia or adenopathy seen bilaterally. No abnormal small or large bowel dilatation. A rare sigmoid colonic diverticula is present. Uterus is surgically absent. No free fluid in the pelvis. IMPRESSION: Mild degenerative change in left hip has similar appearance to opposite right hip.
== END | disposition home or self-care (01) ==
LOC: RADMRIMAIN 06:28
PROVIDERS: ATTEND Family Medicine
DX: M16.12 Unilateral primary osteoarthritis, left hip (principal)

== ENCOUNTER → 2022-10-30 | Outpatient (CLI) | payer OTHER ==
[2022-10-30 11:04] LABS: Basophils # (A) 0.09 X 10*3/uL (0.00-0.10); Basophils % (A) 1.2 %; Eosinophils # (A) 0.22 X 10*3/uL (0.04-0.35); Eosinophils % (A) 2.9 %; HCT 41.6 % (37.2-46.3); HGB 13.9 g/dL (12.0-15.0); Immature Grans, Automated 0.3 %; Lymphocytes # (A) 2.21 X 10*3/uL (0.90-5.00); Lymphocytes % (A) 28.9 %; MCHC 33.4 g/dL (32.0-37.0); MCV 92.7 fL (80.0-97.0); Mean Platelet Volume 9.9 fL (9.5-12.2); Monocytes # (A) 0.73 X 10*3/uL (0.20-1.00); Monocytes % (A) 9.5 %; NRBC Per 100 WBC 0 /100 WBCS (0.0-0.0); Neutrophils # (A) 4.38 X 10*3/uL (1.80-7.70); Neutrophils % (A) 57.2 %; Platelet Count 237 X 10*3/uL (140-440); RBC 4.49 X 10*6/uL (4.10-5.20); RDW 14.1 % (11.5-14.5); WBC 7.65 X 10*3/uL (4.50-10.00)
[2022-10-30 16:50] LABS: % Iron Saturation 19.95 (12.00-45.00); ALT 24 U/L (8-44); AST 14 U/L (13-35); Albumin 4.8 g/dL (3.8-4.9); Albumin/Globulin Ratio 1.84 (1.60-3.17); Alkaline Phosphatase 37 U/L (41-126); BUN/Creat Ratio 28.09 Ratio (12.00-20.00); Blood Urea Nitrogen 16.6 mg/dL (9.0-27.0); Calcium 10.4 mg/dL (8.7-10.3); Carbon Dioxide 26.4 mmol/L (20.0-27.5); Chloride 103 mmol/L (96-109); Chol/HDL Ratio 3.48 Ratio; Globulin 2.6 g/dL (1.6-3.3); Glucose 102 mg/dL (70-110); Iron 86 ug/dL (50-170); LDL Cholesterol,Calculated 89.3 mg/dL (0.0-131.0); Potassium 5.4 mmol/L (3.5-5.5); Sodium 141 mmol/L (135-145); Total Iron Binding Capacity 433 ug/dL (228-460); Total Protein 7.3 g/dL (6.2-8.2)
== END | disposition home or self-care (01) ==
LOC: LABWHC1 07:22
PROVIDERS: ATTEND Internal Medicine Endocrinology, Diabetes & Metabolism
DX: E11.65 Type 2 diabetes mellitus with hyperglycemia (principal); E03.9 Hypothyroidism, unspecified
CPT/HCPCS: 36415; 80053; 80061; 82306; 82728; 83036; 83540; 83550; 84439; 84443; 84480; 85025

== ENCOUNTER → 2022-11-06 | Outpatient (CLI) | payer OTHER | END | disposition home or self-care (01) | LOC: LABWHC1 06:58 | PROVIDERS: ATTEND Internal Medicine Medical Oncology | DX: E72.12 Methylenetetrahydrofolate reductase deficiency (principal); E11.9 Type 2 diabetes mellitus without complications; D75.839 Thrombocytosis, unspecified; M19.90 Unspecified osteoarthritis, unspecified site | CPT/HCPCS: 36415; 84480 ==

== ENCOUNTER → 2023-02-05 | Outpatient (CLI) | payer OTHER ==
[2023-02-05 11:23] LABS: T4, Free (Free Thyroxine) 0.98 ng/dL (0.80-1.80)
== END | disposition home or self-care (01) ==
LOC: LABWHC1 06:59
PROVIDERS: ATTEND Internal Medicine Endocrinology, Diabetes & Metabolism
DX: E03.9 Hypothyroidism, unspecified (principal); E55.9 Vitamin D deficiency, unspecified; E11.65 Type 2 diabetes mellitus with hyperglycemia
CPT/HCPCS: 36415; 82306; 83036; 84439; 84443

== ENCOUNTER → 2023-07-09 | Outpatient (CLI) | payer OTHER ==
[2023-07-09 12:42] LABS: Chol/HDL Ratio 4.49 Ratio; LDL Cholesterol,Calculated 119.1 mg/dL (0.0-131.0); T4, Free (Free Thyroxine) 1.07 ng/dL (0.80-1.80)
== END | disposition home or self-care (01) ==
LOC: LABWHC1 06:48
PROVIDERS: ATTEND Internal Medicine Endocrinology, Diabetes & Metabolism
DX: E03.9 Hypothyroidism, unspecified (principal); E78.5 Hyperlipidemia, unspecified; E55.9 Vitamin D deficiency, unspecified; E11.65 Type 2 diabetes mellitus with hyperglycemia; M81.0 Age-related osteoporosis without current pathological fracture
CPT/HCPCS: 36415; 80061; 82306; 83036; 84439; 84443

== ENCOUNTER → 2023-10-01 | Outpatient (CLI) | payer OTHER ==
[2023-10-01 10:54] LABS: ALT 16 U/L (8-44); AST 11 U/L (13-35); Albumin 4.7 g/dL (3.8-4.9); Albumin/Globulin Ratio 1.96 Ratio (1.60-3.17); Alkaline Phosphatase 41 U/L (41-126); Blood Urea Nitrogen 18.4 mg/dL (9.0-27.0); Calcium 9.9 mg/dL (8.7-10.3); Carbon Dioxide 27.2 mmol/L (21.6-31.8); Chloride 104 mmol/L (96-109); Chol/HDL Ratio 4.58 Ratio; Globulin 2.4 g/dL (1.6-3.3); Glucose 113 mg/dL (70-110); LDL Cholesterol,Calculated 154.4 mg/dL (0.0-131.0); Magnesium 2.3 mg/dL (1.5-2.4); Phosphorus 3.7 mg/dL (2.4-5.1); Potassium 4.5 mmol/L (3.5-5.5); Sodium 142 mmol/L (135-145); T4, Free (Free Thyroxine) 0.89 ng/dL (0.80-1.80); Total Bilirubin 0.3 mg/dL (0.3-1.2); Total Protein 7.1 g/dL (6.2-8.2)
[2023-10-01 18:24] LABS: Microalbumin Creatinine Ratio <18 mg/g Cr (0-30); Urine Creatinine 66.4 mg/dL (28.0-217.0)
== END | disposition home or self-care (01) ==
LOC: LABWHC1 06:53
PROVIDERS: ATTEND Internal Medicine Endocrinology, Diabetes & Metabolism
DX: E03.9 Hypothyroidism, unspecified (principal); E55.9 Vitamin D deficiency, unspecified; M81.0 Age-related osteoporosis without current pathological fracture
CPT/HCPCS: 36415; 80053; 80061; 82043; 82306; 82523; 82570; 83036; 83735; 83970; 84100; 84439; 84443; 84480

== ENCOUNTER → 2024-03-22 | Outpatient (CLI) | payer OTHER ==
--- NOTE | 2024-03-22 13:25 | BD ---
EXAMINATION TYPE: Axial Bone Density DATE OF EXAM: 03/22/2024 CLINICAL HISTORY: 58 years old Female. ICD-10 CODE: M85.9 DISORDER OF BONE DENSITY AN Height: 4 ft 11 in Weight: 128no FRAX RISK QUESTIONS: Alcohol (3 or more units per day): no Family History (Parent hip fracture): no Glucocorticoids (More than 3mos): no (Ex: prednisone, prednisolone, methylprednisolone, dexamethasone, and hydrocortisone). History of Fracture in Adulthood: no Secondary Osteoporosis: 1. Type 1 Diabetes: no 2. Hyperthyroidism: no 3. Menopause before 45: yes 4. Malnutrition: no 5. Chronic liver disease: no Rheumatoid Arthritis: no Current Tobacco Use: no RISK FACTORS HISTORY OF: Surgery to Spine/Hip(right/left)/Wrist (right/left): no MEDICATIONS: Thyroid Medications: yes Which medication: armour thyroid How Lon years Osteoporosis Medications: none now EXAM MEASUREMENTS: Bone mineral densitometry was performed using the [employer] System. Bone mineral density as measured about the Lumbar spine is: ----- L1-L4(G/cm2): 1.164 T Score Values are as follows: ----- L1: -0.7 ----- L2: -0.6 ----- L3: -0.4 ----- L4: 0.8 ----- L1-L4: -0.1 Z Score Values are as follows: ----- L1: 0.7 ----- L2: 0.8 ----- L3: 0.9 ----- L4: 2.2 ----- L1-L4: 1.3 Bone mineral density has: decreased -1.4 % since study of: 2021 Bone mineral density about the R hip (g/cm2): 0.889 Bone mineral density about the L hip (g/cm2): 0.904 T Score values are as follows: -----R Neck: -1.1 -----L Neck: -1.0 -----R Total: -0.1 -----L Total: -0.3 Z Score values are as follows: -----R Neck: 0.3 -----L Neck: 0.4 -----R Total: 1.0 -----L Total: 0.7 Bone mineral density has: decreased -1.4 % since study of: 2021 FRAX%s: The graph provided illustrates a 14.1 % chance for a major osteoporotic fx and a 0.4 % chance for the hips probability for fx in 10 years time. IMPRESSION: Normal (Values between +1 and -1 indicate normal bone mass). Consider repeating this study in 5 year s or sooner if there is some new clinical indication. NOTE: T-SCORE=SD OF THE YOUNG ADULT MEAN. [facility], , 03/22/2024 1:23 PM
--- NOTE | 2024-03-23 09:23 | MM ---
Reason for Exam: Screening (asymptomatic). Last mammogram was performed 2 year(s) and 1 month(s) ago. Patient History: Menarche at age 10. First Full-Term at age 19. Left ovary removed at age 20. Right ovary removed at age 20. Hysterectomy at age 20. Postmenopausal. Patient has history of breast feeding. Estrogen, from age 29 until age 44. Progesterone, from age 29 until age 44. 1986, Benign Excisional Biopsy on the left side. 08/27/2017, Benign Core Biopsy on the right side. Paternal grandmother had breast cancer, age 68. Maternal grandmother had breast cancer, age 90. Risk Values: Lois 5 year model risk: 2.0%. NCI Lifetime model risk: 10.9%. Prior Study Comparison: 02/24/2019 Bilateral Screening Mammogram, [facility]. 12/06/2020 Bilateral Screening Mammogram, [facility]. 01/30/2022 Bilateral MG 3D screening mammo w/cad, [facility]. Tissue Density: There are scattered areas of fibroglandular density. Findings: Analyzed By CAD. There is no suspicious group of microcalcifications or new suspicious mass in either breast. Overall Assessment: Benign, BI-RAD 2 Management: Screening Mammogram of both breasts in 1 year. . Patient should continue monthly self-breast exams. A clinical breast exam by your physician is recommended on an annual basis. This exam should not preclude additional follow-up of suspicious palpable abnormalities. Note on Lois scores and lifetime risk: 1. A Lois score greater than 3% is considered moderate risk. If this is the case, consider specialist referral to assess eligibility for a risk reducing agent. 2. If overall lifetime risk for the development of breast cancer is 20% or higher, the patient may qualify for future screening with alternating mammogram and breast MRI. [facility], , 03/23/2024 9:20 AM. Electronically signed and approved by: Louie Rios M.D. Radi[facility]
== END | disposition home or self-care (01) ==
LOC: RADMAMWWP 06:52
PROVIDERS: ATTEND Obstetrics & Gynecology
CPT/HCPCS: 77063; 77067; 77080

== ENCOUNTER → 2024-05-09 | Outpatient (CLI) | payer OTHER ==
[2024-05-09 10:21] LABS: Basophils # (A) 0.11 X 10*3/uL (0.00-0.10); Basophils % (A) 1.7 %; Eosinophils # (A) 0.21 X 10*3/uL (0.04-0.35); Eosinophils % (A) 3.2 %; HCT 42.4 % (37.2-46.3); Lymphocytes # (A) 1.75 X 10*3/uL (0.90-5.00); Lymphocytes % (A) 26.6 %; MCH 30.8 pg (27.0-32.0); MCV 93.2 FL (80.0-97.0); Monocytes # (A) 0.67 X 10*3/uL (0.20-1.00); Monocytes % (A) 10.2 %; NRBC Per 100 WBC 0 X 10*3/uL (0.00-0.01); Neutrophils # (A) 3.83 X 10*3/uL (1.80-7.70); Platelet Count 415 X 10*3/uL (140-440); RBC 4.55 X 10*6/uL (4.10-5.20); RDW 13.9 % (11.5-14.5); WBC 6.59 X 10*3/uL (4.50-10.00)
[2024-05-09 10:49] LABS: Appearance,Urine Clear (Clear); Bilirubin,Urine Negative (Negative); Blood,Urine Negative (Negative); Color,Urine Yellow (Yellow); Ketones,Urine Trace (Negative); Nitrite,Urine Negative (Negative); PH, Urine 5.5; Specific Gravity,Urine 1.027 (1.001-1.030); Urobilinogen,Urine 0.2 E.U./DL
[2024-05-09 11:04] LABS: ALT 16 U/L (8-44); AST 13 U/L (13-35); Albumin 4.4 g/dL (3.8-4.9); Alkaline Phosphatase 42 U/L (41-126); BUN/Creat Ratio 30.83 Ratio (12.00-20.00); Blood Urea Nitrogen 18.5 mg/dL (9.0-27.0); Calcium 9.9 mg/dL (8.7-10.3); Carbon Dioxide 28.8 mmol/L (21.6-31.8); Chloride 101 mmol/L (96-109); Globulin 2.2 g/dL (1.6-3.3); Glucose 120 mg/dL (70-110); LDL Cholesterol,Calculated 67.7 mg/dL (0.0-131.0); Potassium 4.9 mmol/L (3.5-5.5); Sodium 138 mmol/L (135-145); Total Bilirubin 0.2 mg/dL (0.3-1.2); Total Protein 6.6 g/dL (6.2-8.2)
[2024-05-09 11:05] LABS: T4, Free (Free Thyroxine) 0.94 ng/dL (0.80-1.80)
[2024-05-09 13:31] LABS: Bacteria,Urine None Seen (None Seen); Calcium Oxalate Crystals,Urine Present (None Seen)
== END | disposition home or self-care (01) ==
LOC: LABWHC1 06:52
PROVIDERS: ATTEND Nurse Practitioner
DX: I10 Essential (primary) hypertension (principal); E03.9 Hypothyroidism, unspecified; E11.65 Type 2 diabetes mellitus with hyperglycemia; E55.9 Vitamin D deficiency, unspecified; E66.9 Obesity, unspecified; E78.5 Hyperlipidemia, unspecified
CPT/HCPCS: 36415; 80053; 80061; 81001; 82043; 82306; 82570; 83036; 84439; 84443; 84480; 85025

== ENCOUNTER → 2024-11-14 | Outpatient (CLI) | payer OTHER ==
[2024-11-14 10:31] LABS: Microalbumin Creatinine Ratio <18 mg/g Cr (0-30); Urine Creatinine 67.7 mg/dL (28.0-217.0)
[2024-11-14 11:11] LABS: ALT 16 U/L (8-44); AST 14 U/L (13-35); Albumin 4.6 g/dL (3.8-4.9); Albumin/Globulin Ratio 1.77 Ratio (1.60-3.17); Alkaline Phosphatase 49 U/L (41-126); Blood Urea Nitrogen 12.9 mg/dL (9.0-27.0); Calcium 9.7 mg/dL (8.7-10.3); Carbon Dioxide 25.8 mmol/L (21.6-31.8); Chloride 99 mmol/L (96-109); Chol/HDL Ratio 3.48 Ratio; Globulin 2.6 g/dL (1.6-3.3); Glucose 112 mg/dL (70-110); Potassium 4.9 mmol/L (3.5-5.5); Sodium 136 mmol/L (135-145); Total Bilirubin 0.3 mg/dL (0.3-1.2); Total Protein 7.2 g/dL (6.2-8.2)
== END | disposition home or self-care (01) ==
LOC: LABWHC1 06:48
PROVIDERS: ATTEND Nurse Practitioner
DX: E03.9 Hypothyroidism, unspecified (principal); E11.65 Type 2 diabetes mellitus with hyperglycemia; E66.9 Obesity, unspecified; E55.9 Vitamin D deficiency, unspecified; I10 Essential (primary) hypertension; M81.0 Age-related osteoporosis without current pathological fracture; E78.5 Hyperlipidemia, unspecified
CPT/HCPCS: 36415; 80053; 80061; 82043; 82306; 82570; 83036; 84439; 84443; 84480